=== PATIENT | female | born 1995 | race Caucasian/White ===

== ENCOUNTER 2021-08-06 13:46 | Emergency (ER) | payer OTHER ==
[2021-08-06 14:15] LABS: RAPID STREP SCREEN Negative (Negative)
[2021-08-06] MEDS ORDERED: CHERRY SYRUP 10 ML UDC PO ONE (15:49)
[2021-08-06] MEDS ORDERED: DEXAMETHASONE 10 MG/ML VIAL PO STA (15:49)
--- NOTE | 2021-08-06 15:51 | ED Physician Documentation ---
PD HPI HEENT - Stated complaint Stated Complaint: THROAT PX - Chief complaint Chief Complaint: Heent - History obtained from History obtained from: Patient - History of Present Illness Timing - onset: How many weeks ago (1) Timing - duration: Weeks (1) Timing - details: Gradual onset, Still present Location: Throat Improves: Medication Worsens: Swalllowing Associated symptoms: Congestion, Headache, Other (ear pain). No: Fever Similar symptoms before: Has not had sx before Recently seen: Not recently seen - Additional information Additional information: 26-year-old female [employer] [place] has recently had sleep deprivation associated with attempting to readjust her clock time for travel back from [facility]. She had a negative Covid test prior to flying back she developed a sore throat prior to flying back and she has had persistence of the sore throat. She has pain with swallowing and she has noted a ulcer on the uvula which is swollen and touching the back of her tongue. She has not had fever with this she has not had cough she has now developed some pain in her ears associated with this. Review of Systems Constitutional: denies: Fever Eyes: denies: Decreased vision Ears: reports: Ear pain Nose: reports: Congestion. denies: Rhinorrhea / runny nose Throat: reports: Sore throat Cardiac: denies: Chest pain / pressure, Palpitations Respiratory: denies: Dyspnea, Cough GI: denies: Vomiting PD PAST MEDICAL HISTORY - Present Medications Home Medications: Ambulatory Orders Medication Instructions Recorded Confirmed Amoxicillin 875 mg PO BID #10 tablet 08/06/21 No Known Home Medications 08/06/21 08/06/21 - Allergies Allergies/Adverse Reactions: Allergies Allergy/AdvReac Type Severity Reaction Status Date / Time vancomycin Allergy Rash Verified 08/06/21 13:57 PD ED PE NORMAL - Vitals Vital signs reviewed: Yes (hypertensive ) - General General: Alert and oriented X 3, No acute distress, Well developed/nourished - HEENT HEENT: Atraumatic, PERRL, EOMI, Ears normal, Other (There is erythema to the uvula with swelling and a central superficial ulceration. There is no significant exudate.) - Neck Neck: Supple, no meningeal sign, No bony TTP - Cardiac Cardiac: RRR, No murmur - Respiratory Respiratory: No respiratory distress, Clear bilaterally - Abdomen Abdomen: Soft, Non tender - Back Back: No CVA TTP, No spinal TTP - Derm Derm: Normal color, Warm and dry, No rash - Extremities Extremities: No deformity, No edema - Neuro Neuro: Alert and oriented X 3, clothes shaker 2-12 intact, No motor deficit, No sensory deficit, Normal speech Eye Opening: Spontaneous Motor: Obeys Commands Verbal: Oriented GCS Score: 15 - Psych Psych: Normal mood, Normal affect Results - Vitals Vitals: Vital Signs - 24 hr 08/06/21 13:57 Temperature 36.5 C Heart Rate 60 Respiratory 16 Rate Blood Pressure 136/89 H O2 Saturation 100 Oxygen O2 Source Room air - Labs Labs: Laboratory Tests 08/06/21 14:00 Group A Strep Rapid Negative PD MEDICAL DECISION MAKING - ED course Complexity details: considered differential, d/w patient ED course: 26-year-old female with a sore throat has uvulitis with plan ulceration and she is administered dexamethasone 10 mg orally and we will place her on a short course of Amoxicillin. Departure - Departure Disposition: 01 Home, Self Care Clinical Impression: Uvulitis Condition: Stable Instructions: ED Uvulitis Follow-Up: KAYE Sorensen [Provider Group] Prescriptions: Amoxicillin 875 mg PO BID #10 tablet
[2021-08-06 16:00] VITALS: BP 152/78
== END 2021-08-06 16:01 | disposition home or self-care (01) ==
LOC: ED 13:46
DX: K12.2 Cellulitis and abscess of mouth (principal)
CPT/HCPCS: 87070; 87430; 99283; A9270

== ENCOUNTER 2023-06-06 10:15 | Emergency (ER) | payer OTHER ==
--- NOTE | 2023-06-06 10:30 | ED Physician Documentation ---
PD HPI NVD - Stated complaint Stated Complaint: VOMITING/SWEATING - Chief complaint Chief Complaint: Abd Pain - History obtained from History obtained from: Patient - History of Present Illness Timing - onset: How many hours ago (few), Today Timing - duration: Hours Timing - details: Abrupt onset, Still present Associated symptoms: Abdominal pain (upper abd). No: Fever, Hematemesis Contributing factors: Bad food (believes it is from left out chicken eaten last evening.). No: Sick contact Improved by: No: Vomiting Worsened by: Eating Similar symptoms before: Has not had sx before Recently seen: Not recently seen Review of Systems Constitutional: denies: Fever, Chills Nose: denies: Rhinorrhea / runny nose, Congestion Throat: denies: Sore throat Respiratory: denies: Cough GI: reports: Nausea, Vomiting, Diarrhea (couple times) PD PAST MEDICAL HISTORY - Past Medical History Cardiovascular: None Respiratory: None Neuro: None Endocrine/Autoimmune: None GI: None [employer]: None : None HEENT: None Psych: None Musculoskeletal: None Derm: None - Past Surgical History Past Surgical History: No - Present Medications Home Medications: Ambulatory Orders Medication Instructions Recorded Confirmed Ondansetron Odt [Zofran] 4 mg TL Q6H PRN #10 tablet 06/06/23 Promethazine Supp [Phenergan Supp] 25 mg IL Q6H PRN #4 supp 06/06/23 - Allergies Allergies/Adverse Reactions: Allergies Allergy/AdvReac Type Severity Reaction Status Date / Time vancomycin Allergy Rash Verified 06/06/23 10:23 - Social History Does the pt smoke?: No Smoking Status: Never smoker Does the pt drink ETOH?: No Does the pt have substance abuse?: No - Immunizations Immunizations are current?: Yes PD ED PE NORMAL - Vitals Vital signs reviewed: Yes - General General: Alert and oriented X 3, Well developed/nourished - Cardiac Cardiac: No murmur. No: RRR (tachycardic) - Respiratory Respiratory: No respiratory distress, Clear bilaterally - Abdomen Abdomen: Normal bowel sounds, Soft, Non tender, Non distended, No organomegaly - Derm Derm: Normal color, Warm and dry - Neuro Neuro: Alert and oriented X 3, No motor deficit, Normal speech Results - Vitals Vitals: Oxygen O2 Source Room air - Labs Labs: Laboratory Tests 06/06/23 06/06/23 10:32 10:37 WBC 14.5 H RBC 4.78 Hgb 14.9 Hct 44.1 MCV 92.3 MCH 31.2 H MCHC 33.8 RDW 11.5 L Plt Count 347 MPV 9.6 Neut # (Auto) 10.8 H Lymph # (Auto) 2.8 Knott # (Auto) 0.8 Eos # (Auto) 0.0 Baso # (Auto) 0.0 Absolute Nucleated RBC 0.00 Nucleated RBC % 0.0 Sodium 137 Potassium 4.2 Chloride 101 Carbon Dioxide 26 Anion Gap 10.0 BUN 27 H Creatinine 0.8 Estimated GFR (MDRD) 84 L Glucose 124 H Calcium 10.8 H Total Bilirubin 0.6 AST 26 ALT 16 Alkaline Phosphatase 69 Total Protein 8.8 Albumin 5.7 H Globulin 3.1 Albumin/Globulin Ratio 1.8 Lipase 65 PD Medical Decision Making - ED course Complexity details: reviewed results (elevated whie count. Glucose is good. renal function okay. calcium elevated 10.6, should not be contributing to her symtpoms. ), re-evaluated patient (improved symptoms and able to keep down fluids. ), considered differential (abrupt onset repetitive vomiting. Does not seem in alot of distress, but still emesis. Presume viral GE or food related. Does not seem as likely cannibis hyperemesis. Nonfocal tender on abd, does not seem like GB nor appy. ), d/w patient Drug Therapy Requiring Monitoring for Toxicity: given IV fluids and antiemetics along with Toradol. Departure - Departure Disposition: 01 Home, Self Care Clinical Impression: Upper abdominal pain Nausea & vomiting Qualifiers: Vomiting type: unspecified Qualified Code(s): R11.2 - Nausea with vomiting, unspecified Condition: Stable Record reviewed to determine appropriate education?: Yes Instructions: ED Nausea Vomiting Prescriptions: Promethazine Supp [Phenergan Supp] 25 mg IL Q6H PRN #4 supp PRN Reason: Nausea / Vomiting Ondansetron Odt [Zofran] 4 mg TL Q6H PRN #10 tablet PRN Reason: Nausea / Vomiting Comments: [place] food and small frequent fluids today. Progress as tolerated into tomorrow. You can use some antacids such as Maalox or Mylanta if needed for upset stomach. I wrote prescription for dance to try on antiemetic nausea medicine if you have persistent nausea and also promethazine suppository if you have recurrent vomiting. A food poisoning or viral stomach flu typically last for a day or 2. Recheck if not improved in that timeframe. I sent your prescriptions to [facility] pharmacy. Forms: PCP List, Activity restrictions Discharge Date/Time: 06/06/23 13:23
[2023-06-06] MEDS ORDERED: SODIUM CHLORIDE 0.9% 1,000 ML IV STA (10:37)
[2023-06-06] MEDS ORDERED: ONDANSETRON 4 MG/2 ML VIAL IVP STA (10:37)
[2023-06-06] MEDS ORDERED: KETOROLAC 15 MG/ML VIAL IVP STA (10:37)
[2023-06-06 10:44] LABS: BASOPHILS % (AUTO) 0.3 %; EOSINOPHILS % (AUTO) 0.3 %; HCT - HEMATOCRIT 44.1 % (37.0-47.0); HGB - HEMOGLOBIN 14.9 g/dL (12.0-16.0); LYMPHOCYTES # (AUTO) 2.8 10^3/uL (1.5-3.5); LYMPHOCYTES % (AUTO) 19.4 %; MEAN CORPUSCULAR HEMOGLOBIN 31.2 pg (27.0-31.0); MEAN CORPUSCULAR HGB CONC 33.8 g/dL (32.0-36.0); MEAN CORPUSCULAR VOLUME 92.3 fL (81.0-99.0); MEAN PLATELET VOLUME 9.6 fL (7.9-10.8); MONOCYTES # (AUTO) 0.8 10^3/uL (0.0-1.0); MONOCYTES % (AUTO) 5.4 %; NEUTROPHILS # (AUTO) 10.8 10^3/uL (1.5-6.6); NEUTROPHILS % (AUTO) 74.3 %; PLT - PLATELET COUNT 347 10^3/uL (130-450); RED BLOOD COUNT 4.78 10^6/uL (4.20-5.40); RED CELL DISTRIBUTION WIDTH 11.5 % (12.0-15.0); WHITE BLOOD COUNT 14.5 x10^3/uL (4.8-10.8)
[2023-06-06 11:33] LABS: ALBUMIN 5.7 g/dL (3.2-5.5)
[2023-06-06 11:48] LABS: POTASSIUM 4.2 mmol/L (3.5-4.5)
[2023-06-06 11:53] LABS: ALBUMIN/GLOBULIN RATIO 1.8 (1.0-2.2); BILIRUBIN,TOTAL 0.6 mg/dL (0.2-1.0); CALCIUM 10.8 mg/dL (8.5-10.3); CREATININE 0.8 mg/dL (0.6-1.3); TOTAL PROTEIN 8.8 g/dL (6.4-8.9)
[2023-06-06 13:25] VITALS: BP 103/63; O2SAT 100
== END 2023-06-06 13:23 | disposition home or self-care (01) ==
LOC: ED 10:15
DX: R10.10 Upper abdominal pain, unspecified (principal)
CPT/HCPCS: 36415; 80053; 83690; 85025; 96361; 96374; 96375; 99283